=== PATIENT | female | born 1960 | race Caucasian/White ===

== ENCOUNTER 2022-02-12 01:51 | Day surgery (SDC) | payer OTHER, SELFPAY ==
[2022-02-04 15:27] VITALS: BMI 21.7
--- NOTE | 2022-02-04 15:29 | SUR.PREOP ---
Report to the Outpatient Waiting Room, entrance under the green pavilion located off [facility], at time _1200 on date _02/12/22 . Planned Procedure Time: _1400 . Time changes happen often and if your time is changed the preop area will call you the afternoon before. - You and your visitor will be asked to self-screen and do not enter if you have any COVID symptoms. - Only one visitor is requested with a max of two and NO children visitors are allowed at this time. - The patient visitor may be requested to leave or wait in car when not with patient due to distancing restrictions. - A mask is optional within the hospital. Patients may have clear liquids (water, carbonated beverages, clear teas, apple juice) until 3 hours prior to surgery with a maximum of 20 ounces. - No food from midnight until time of surgery - Infants may have breast milk until 4 hours before surgery, formula 6 hours prior to surgery. - Children will be allowed to drink immediately following surgery. If applicable, please bring a bottle or sippy cup to assist with drinking. Juice, water, soda, and popsicles are readily available. For infants on formula, please bring formula the day of surgery. Pacifiers are allowed. Take the following medications with a SIP of water the morning of surgery: __advair Medications to discontinue per physician ___vitamin supplements Date to take last dose___02/09/22 Please no make-up, nail mozambican, hairspray, perfume, deodorant, or body powder the day of surgery. No jewelry (including any body piercings) or valuables the day of surgery, leave them at home. Please take a shower or bath the night before, or the morning of, surgery with an antibacterial soap. Wear comfortable, loose fitting clothing. Children are encouraged to wear pajamas. - Jewelry must be removed prior to entering the operating room. Rings and piercings that are not removed may be cut off. - The hospital will not accept responsibility for valuables. - Please leave all valuables, including medications, at home the day of surgery. If you are going home after surgery, a licensed courtesy driver must drive you home. - NO public transportation without another adult if you receive anesthesia. - We recommend that an adult stay with you for 24 hours following discharge. - We also recommend that you do not drive, make important decision, drink alcoholic beverages, or take any drugs that were not prescribed by your health care provider for at least 24 hours after your discharge time. For Pediatric surgeries, we recommend two adults accompany the child home. Follow any additional instructions given to you from your surgeon. If you or anyone in your household have experienced Covid symptoms in the past week, please notify your surgeon or the nurse liaison at the phone number below for possible testing. Telephone instructions given to dayana merlos and asked if any additional questions and then verbalized understanding. Patient advised to call surgeon office or pre surgery nurse liaison [phone] if any additional questions.
[2022-02-12] VITALS (9 sets, daily range): BP systolic 98–134; BP diastolic 67–78; PULSE 59–103; RESP 10–17; TEMP 36.6–36.9; O2SAT 98–100
[2022-02-12] MEDS: LACTATED RINGERS 1,000 ML 30 ML IV CONT ×2 (12:56→14:42)
--- NOTE | 2022-02-12 13:02 | WPDANESEPPF ---
Anes - Initial Pre Proc Eval Procedure: Operation Date: 02/12/22 14:00 Proposed Procedures p Bilateral Breast Implant Exchange - Surendra Bhagat MD Date/Time: 02/12/22 13:02 Surgeon: Surendra Bhagat MD Pre Op Diagnosis: Hx of Breast Aug Patient Data Age: 61 Gender: F Height: 1.65 m Weight: 61.2 kg Last Vital Signs Temp 36.9 C 02/12/22 12:59 Pulse 59 L 02/12/22 12:59 Resp 16 02/12/22 12:59 BP 116/68 02/12/22 12:59 Pulse Ox 100 02/12/22 12:59 O2 Del Method Room Air 02/12/22 12:59 Allergies Allergy/AdvReac Type Severity Reaction Status Date / Time No Known Allergies Allergy Verified 02/12/22 12:32 Home Medications Medication Instructions Recorded Confirmed Type albuterol sulfate 90 mcg/actuation 1 puff inhalation DAILY 02/04/22 02/12/22 History aerosol inhaler (ProAir HFA) aprepitant 40 mg capsule 40 mg PO ONCE 02/04/22 02/12/22 History atorvastatin 40 mg tablet 40 mg PO DAILY 02/04/22 02/12/22 History calcium 500 mg tablet 500 mg PO DAILY 02/04/22 02/12/22 History ergocalciferol (vitamin D2) 1,000 2,000 unit PO DAILY 02/04/22 02/12/22 History unit capsule fluticasone 100 mcg-salmeterol 50 1 ea inhalation DAILY 02/04/22 02/12/22 History mcg/dose blistr powdr for inhalation (Advair Diskus) gabapentin 300 mg capsule 200 mg PO DAILY 02/04/22 02/12/22 History montelukast 10 mg tablet 10 mg PO DAILY 02/04/22 02/12/22 History ondansetron 8 mg disintegrating 8 mg PO PRN PRN Nausea 02/04/22 02/12/22 History tablet paroxetine HCl 20 mg tablet 10 mg PO DAILY 02/04/22 02/12/22 History spironolactone 25 mg tablet 25 mg PO EVERY OTHER DAY 02/04/22 02/12/22 History Laboratory Tests 02/12/22 12:51 Sodium Pending Potassium Pending Chloride Pending Carbon Dioxide Pending Anion Gap Pending BUN Pending Creatinine Pending Estim Creat Clear Calc Pending Estimated GFR Pending Glucose Pending Calcium Pending Patient hx anesthesia problems: post op nausea/vomiting Family hx anesthesia problems: none Results Review: All pre-operative results and documents have been reviewed as part of the pre-operative evaluation. [facility] Past Medical History Medical History Asthma Hyperlipidemia Social History Social History Smoking status: Never smoker Alcohol intake: current Drinks per week: 7 Alcohol use details: 5oz red wine a night Living arrangements: with family Spiritual care concerns: No Anes - Eval Final PreProcedure Day of Procedure 02/12/22 13:02 Patient weight: normal Heart: regular rate and rhythm Lungs: clear to auscultation Airway: Mallampati scale class 1 Neurological: alert and oriented Last oral intake: >/= 8 hours ASA classification: II Emergent: no Anesthetic plan: proceed Anesthesia type and monitoring: general LMA and standard monitoring Results Review: All pre-operative results and documents have been reviewed as part of the pre-operative evaluation. Informed Consent: The patient's anesthetic plan and its attendant risks and benefits were discussed with the patient/family/POA. Questions were solicited and answers provided to the satisfaction of the patient/family/POA.
--- NOTE | 2022-02-12 13:03 | WPDHPUPDATE1 ---
History and Physical Update Update Date/Time: 02/12/22 13:03 History and Physical has been reviewed, including an updated exam of the patient. There are NO changes in the patient's condition. Risks, benefits, and alternatives have been discussed and questions answered. Patient agrees to proceed with procedure.
--- NOTE | 2022-02-12 13:09 | WPDHPUPDATE1 ---
History and Physical Update Update Date/Time: 02/12/22 13:09 History and Physical has been reviewed, including an updated exam of the patient. There are NO changes in the patient's condition. Risks, benefits, and alternatives have been discussed and questions answered. Patient agrees to proceed with procedure.
[2022-02-12 13:16] LABS: Anion Gap 5 mmol/L (8-16); Blood Urea Nitrogen 29 mg/dL (7-17); Calcium 9.2 mg/dL (8.4-10.2); Carbon Dioxide 28 mmol/L (22-30); Chloride 106 mmol/L (98-107); Estimated CRCL calculation 46 ml/min; Estimated Glomerular Filt Rate 56; Glucose 83 mg/dL (65-110); Potassium 3.9 mmol/L (3.4-5.0); Sodium 139 mmol/L (137-145)
[2022-02-12] MEDS: ceFAZolin 2 GM/D5W 50 ML 2 GM/50 ML BAG IVPB (13:31)
[2022-02-12] MEDS: BUPIVACAINE HCL 0.25% PF 30 ML VIAL INFILTRATE (13:42)
[2022-02-12] MEDS: LIDO 1%/EPINEPHRINE/PF 1:200,000 30 ML VIAL XX (13:42)
[2022-02-12] MEDS: NACL 0.9% IRRIG POUR BOTTLE 900 ML, GENTAMICIN SULFATE INJ 160 MG, ceFAZolin 2 GM, POVI... IRRIGATION (13:52)
--- NOTE | 2022-02-12 14:42 | W.PM.PROC2 ---
Procedure Note - Detailed Date of Procedure 02/12/22 Pre-op Diagnosis Hx of Breast Aug Post-op Diagnosis Same Procedure Performed Bilateral breast implant exchange Surgeon Surendra Bhagat MD Anesthesia General Findings Old implants 10-270 Natrelle Right - Ruptured Left - Intact New implants Bilateral Natrelle Inspira Smooth 415cc Right - REF# [id number] SN [id number] Left - REF# [id number] SN [id number] Bilateral partial capsulectomy No seroma. No masses. No worrisome features. Description of Procedure She is here today for above. Previously and again today the risks, benefits, alternatives were discussed in extensive detail. I wanted her to be very realistic about the risks involved as well as expectations. We discussed aftercare and what to monitor for. Made sure answered all of her questions to her satisfaction today and consent was obtained. Marked in the preoperative holding area with their verification. The patient was taken to the operating room placed supine on the operating table. Anesthesia was provided by anesthesiology. A surgical time-out was taken. We cleansed the skin and 1% lidocaine and 0.25% Marcaine with epinephrine was used anesthetize as a field block. She was prepped and draped in a standard sterile fashion. Tegaderm nipple Varela were placed. A 15 blade used to excise the previous scar. Left proceeded followed by right breast. Dissection was continued at 45 degree angle until the capsule was identified. I elevated just superficial to the capsule and the majority of the capsule was removed bilateral. I then copiously irrigated with saline solution on TUR tubing (3 liters) and verified a strict hemostasis. On the right I verified all implant material was removed and changed gloves / instruments. Next the use a Betadine containing solution to irrigate the pocket. I washed my gloves with the triple antibiotic and Betadine solution. We washed the implant immediately upon opening it with this solution and only opened it when we needed it. I used implant funnel and no-touch technique. The implant was introduced into the pocket using the funnel. Having verified positioning of the implant this was closed using 2-0 Vicryl followed by 3-0 Monocryl in a running subcuticular 4-0 Monocryl followed by tissue glue. Fluffs and surgical bra were placed. Patient was awoke and taken to PACU without difficulty. All instrument sponge counts were correct at the end of the case. Estimated Blood Loss 20 Drains No Packing No Pathology Yes (Bilateral implant capsules) Complications No immediate complications Condition Stable Disposition PACU
[2022-02-12] MEDS: IBUPROFEN 400 MG TABLET 800 MG PO (16:07)
--- NOTE | 2022-02-12 16:08 | SUR.PHASEII ---
PATIENT STATES SHE DOESN'T WANT NARCOTICS D/T H/O PONV. GIVEN IBUPROFEN.
== END 2022-02-12 17:05 | disposition home or self-care (01) ==
PROVIDERS: Anesthesiology; Visit Provider Surgery Plastic and Reconstructive Surgery
PROC: (CPT 19371; principal; 2022-02-12 14:00)
DX: T85.41XA Breakdown (mechanical) of breast prosthesis and implant, initial encounter (principal); Z45.812 Encounter for adjustment or removal of left breast implant; Y83.8 Other surgical procedures as the cause of abnormal reaction of the patient, or of later complication, without mention of misadventure at the time of the procedure; J45.909 Unspecified asthma, uncomplicated; E78.5 Hyperlipidemia, unspecified; Z79.51 Long term (current) use of inhaled steroids
CPT/HCPCS: 19371; 19325; 36415; 80048; 88304; A9270; J0690; J1100; J1170; J1580; J2250; J2370; J2405; J2704; J7120